=== PATIENT | male | born 1950 | race Caucasian/White ===

== ENCOUNTER 2024-07-05 12:00 | Outpatient (RCR) | payer MEDICARE, SELFPAY ==
--- NOTE | 2024-05-30 14:37 | HP.PTEVAL ---
Patient's Visit Information Visit Information Visit Information: MARK ERWIN is a 73 year old M referred to Physical Therapy by KRISTIAN HU with a diagnosis of S/P TOTAL HIP ARTHOPLASTY RIGHT HIP, PAIN IN RIGHT HIP. Date of Evaluation: 05/30/24 Physical Therapist: Nicholas Navarrete, PT, Cert MDT, OCS Visit Plan Frequency: 3x /Week Duration: 6 Weeks Plan: S/P CARMELA RIGHT ANTERIOR APPROACH DUE TO FX OF FEMUR PT INTERVENTIONS ROM ,STRENGTHENING RLE ( HIP) ,GAIT TRAINING ,BALANCE TRAINING ,FUNCTIONAL STRENGTHENING AND PATIENT EDUCATION Subjective Subjective: This 73 y/o male presents to physical therapy with s/p anterior hip CARMELA on May 25 at [facility] done by DR Kristian Rodriguez. Patient had a skiing accident May 19 in [place]. Patient had x-rays at ER showed fx neck femur. Patient to see DR next June 09. Stopped pain medication just teyonal . Patient denies paresthesia/tingling. Patient denies pain . Patient lives in [place] with 4 steps . Patient tub/shower . Patient sleeping good. Patient condition affects QOL and function. Patient goals to return prior level of function. SOCIAL: VOCATION: [employer] HOBBIES: ski ,bicycle ,water ski Objective Objective: POSTURE: mild forward posture INCISION : anterior approach GAIT: reciprocal pattern with FWW with WBAT RLE BALANCE : Fair + with fww NEURO: denies paresthesia/tingling reflexes L3-4,L4-5,L5- S1 2 AROM: hip flexion 80 degrees ,hip abduction 35 degrees PROM: hip flexion 90 degrees MMT: quads/hams 4/5 ,(peak force) hip flexion/abduction 0 ,ankle 4/5 STAIRS: one step at time with rail and cane Balance/Special Test Scores Lower Extremity Functional Score: 27 TUG Test Time Seconds: 16.1 Goals Goal 1:: Patient to be I with HEP for hip Goal Time Frame: 4-6 Weeks Goal 2:: Patient to normalize gait pattern no device Goal Time Frame: 4-6 Weeks Goal 3:: Patient to improve peak force hip by 10-15# strength to improve gait Goal Time Frame: 4-6 Weeks Goal 4:: Patient to improve LFES score by 5-10 points to improve QOL Goal Time Frame: 4-6 Weeks Goal 5:: Patient to demonstrate 75% improvement with improved gait and function Goal Time Frame: 4-6 Weeks Goal 6:: Patient to improve TUG score by 5 sec Goal Time Frame: 4-6 Weeks Rehabilitation Potential Physical Therapy Diagnosis: This patient underwent s/p anterior CARMELA on May 25 from fx femur thus has impairments with decrease gait ,ROM ,weakness ,strength ,gait and function thus benefit from skilled PT Rehabilitation Potential: Good Anticipated Interventions Patient/Client Instruction: Educate patient on: Condition and Plan of Care For the Purpose of:: To decrease pain, To increase ROM, To improve muscle performance and motor function, To improve ability to perform ADL's, To increase tolerance to activity/condition/position, To improve ability of physical actions for home/community/work/leisure, To improve gait and locomotor functions, To improve health of tissue, To decrease soft tissue restriction, To increase flexibility/ROM, To improve endurance, To improve balance and To improve tolerance to ADL's Therapeutic Exercise to Include: Strength training, Endurance training, Balance training and Gait and locomotor training Comment: QUADS/HAMS/HIP For the Purpose of:: To decrease pain, To improve nutrient delivery to tissue, To increase tolerance to activity/condition/position, To improve ability of physical actions for home/community/work/leisure, To improve gait and locomotor functions, To increase flexibility/ROM, To improve endurance, To improve balance and To improve tolerance to ADL's Text: Thank you for the opportunity to evaluate your patient. For Medicare and Medicare HMO plans, please review the plan of care and approve it. It will need to be FAXED BACK to us at [phone] for Medicare purposes. For Medicare only, by signing this I certify the plan of care. Please let me know if there are questions or concerns regarding this plan of care. Physician Signature: Date:
--- NOTE | 2024-07-05 12:23 | HP.PT.NRP ---
Patient Information Patient Information: MARK ERWIN was seen in my office for initial evaluation on 05/30/24. The following Plan of Care was established for this patient: POC Established Initial Frequency: 3x /Week Initial Duration: 6 Weeks Anticipated Interventions Patient/Client Instruction: Educate patient on: Condition and Plan of Care For the Purpose of:: To decrease pain, To increase ROM, To improve muscle performance and motor function, To improve ability to perform ADL's, To increase tolerance to activity/condition/position, To improve ability of physical actions for home/community/work/leisure, To improve gait and locomotor functions, To improve health of tissue, To decrease soft tissue restriction, To increase flexibility/ROM, To improve endurance, To improve balance and To improve tolerance to ADL's Therapeutic Exercise to Include: Strength training, Endurance training, Balance training and Gait and locomotor training For the Purpose of:: To decrease pain, To improve nutrient delivery to tissue, To increase tolerance to activity/condition/position, To improve ability of physical actions for home/community/work/leisure, To improve gait and locomotor functions, To increase flexibility/ROM, To improve endurance, To improve balance and To improve tolerance to ADL's Last Seen Last Seen: This patient was last seen in our office . Pertinent comments regarding their Physical therapy will appear below: At this point I will be discontinuing this patient from physical therapy. I would be happy to see this patient again in the future if found appropriate by the physician. Thank you! Nicholas Navarrete, PT, Cert MDT, OCS Balance/Gait/Functional tests Balance/Special Test Scores Lower Extremity Functional Score: 80 TUG Test Time Seconds: 6.5 Tug Test: <10 sec.=free mobile
--- NOTE | 2024-07-08 11:22 | HP.PTDCSUM ---
Discharge Summary D/C summary: It has been my pleasure to treat MARK ERWIN referred by CATRINA HU, with the diagnosis of S/P TOTAL HIP ARTHOPLASTY RIGHT HIP, PAIN IN RIGHT HIP for a total of 8 visit(s). Discharge Date: 07/05/24 Please see the following information for a summary of their discharge status. Subjective Subjective: Doing great no problem doing everything at home See next week Pain R hip: Pain Intensity (Out of 10): 0 Overall Improvement % Improvement: 85 Objective Objective/Function: POSTURE: WFL INCISION : anterior approach GAIT: reciprocal pattern BALANCE : Fair + with fww NEURO: denies paresthesia/tingling AROM: hip flexion 110 degrees ,hip abduction 45 degrees PROM: hip flexion 110 degrees MMT: quads/hams 4/5 ,(peak force) hip flexion 43.6 abduction 36,9 ,ankle 4/5 STAIRS: alternate Goals Goal 1:: Patient to be I with HEP for hip Goal Progress: Goal Met Goal 2:: Patient to normalize gait pattern no device Goal Progress: Goal Met Goal 3:: Patient to improve peak force hip by 10-15# strength to improve gait Goal Progress: Goal Met Goal 4:: Patient to improve LFES score by 5-10 points to improve QOL Goal Progress: Goal Met Goal 5:: Patient to demonstrate 75% improvement with improved gait and function Goal Progress: Goal Met Goal 6:: Patient to improve TUG score by 5 sec Plan Plan: D/C TO HEP D/C Information Discharge Comments: hep d/c sentence: If there are questions or concerns regarding this patient's physical therapy, please feel free to call me at [phone]. Thank you for the referral of this patient. Sincerely, Nicholas Navarrete, PT, Cert MDT, OCS Balance/Gait/Functional tests Balance/Special Test Scores Lower Extremity Functional Score: 80 TUG Test Time Seconds: 6.5 Tug Test: <10 sec.=free mobile Improvement % Improvement: 85
== END 2024-07-05 19:00 | disposition home or self-care (01) ==
LOC: PT 12:00
DX: Z47.1 Aftercare following joint replacement surgery (principal); Z96.641 Presence of right artificial hip joint; M25.551 Pain in right hip
CPT/HCPCS: 97110; 97162; 97530